=== PATIENT | female | born 1970 | race Caucasian/White ===

== ENCOUNTER 2019-02-20 20:39 | Emergency (ER) | payer BC ==
[~2019-02-20] VITALS: Ht 160 cm; Wt 66.2 kg
[2019-02-20 20:46] VITALS: Ht 160 cm; Wt 66.2 kg
[2019-02-20 23:36] VITALS: BP 154/71
== END 2019-02-20 23:36 | disposition home or self-care (01) ==
LOC: ED 20:39
DX: N64.4 Mastodynia (principal); R30.0 Dysuria; Z90.710 Acquired absence of both cervix and uterus